=== PATIENT | female | born 1975 | race Two or more races ===

== ENCOUNTER → 2024-07-21 | Outpatient (CLI) | payer MEDICAID, SELFPAY ==
--- NOTE | 2024-07-21 09:15 | XR_ITS ---
Examination: Screening digital mammography, bilateral Computer aided detection 3-D breast Tomosynthesis, bilateral Date and time of exam: July 21, 2024 0856 hours Compared to mammograms dating to September 23, 2021 Indication: Screening Technique: Nonmagnified MLO, CC views of the breasts to been obtained, reconstructed from 3-D Tomosynthesis images. R2 computer aided detection program utilized for evaluation of suspicious masses and/or abnormal calcifications. 3-D Tomosynthesis images obtained. Findings: The breasts are heterogeneously dense, which may obscure small masses 12 mm nodule lobular margins upper outer left breast Benign calcifications Impression: BI-RADS Category 0: Incomplete: Need additional imaging evaluation 12 mm nodule lobular margins upper outer left breast, recommend follow-up spot tomographic views of this nodule as well as left breast sonography to complete the workup
== END | disposition home or self-care (01) ==
LOC: CDIM 08:40
PROVIDERS: Referring Provider Nurse Practitioner Family; Visit Provider Nurse Practitioner Family
DX: Z12.31 Encounter for screening mammogram for malignant neoplasm of breast (principal); N63.21 Unspecified lump in the left breast, upper outer quadrant
CPT/HCPCS: 77063; 77067

== ENCOUNTER → 2024-09-23 | Outpatient (CLI) | payer MEDICAID, SELFPAY ==
--- NOTE | 2024-09-23 11:00 | XR_ITS ---
Examination: Breast ultrasound, unilateral, left complete Date and time of exam: October 03, 2024 1144 hours INDICATIONS: Left breast pain beginning 5 months ago, mammogram July 21, 2024 12 mm nodule upper outer left breast Technique: Real-time dawson scale ultrasonographic imaging performed left breast including all 4 quadrants as well as nipple retroareolar and axillary region. Findings: 12:00 nodule lobular margins 3 by 4 x 4 millimeter 2:00 nodule lobular indistinct margins 4 x 7 x 5 mm 4:00 cyst 3 x 3 mm IMPRESSION: BI-RADS Category 4: Suspicious for malignancy Suspicious mass 2:00 position left breast, biopsy is needed to exclude breast carcinoma, this mass is amenable to ultrasound-guided breast biopsy for diagnosis
--- NOTE | 2024-09-23 11:30 | XR_ITS ---
Examination: Diagnostic digital mammography, unilateral, left Computer aided detection 3-D breast Tomosynthesis, unilateral Date and time of exam: October 03, 2024 1135 hours INDICATIONS: Mammogram July 21, 2024 12 mm nodule lobular margins upper outer left breast Technique: Nonmagnified MLO, CC views of the left breast have been obtained, reconstructed from 3-D Tomosynthesis images. R2 computer aided detection program utilized for evaluation of suspicious masses and/or abnormal calcifications. 3-D Tomosynthesis images obtained. Findings: The breast is heterogeneously dense, which may obscure small masses Ultrasound examination left breast today demonstrates 2:00 nodule indistinct margins 4 x 7 x 5 mm not well visualized on current mammogram Impression: BI-RADS category 4: Suspicious for malignancy Please see the left breast sonogram report today indicating BI-RADS 4 suspicious nodule 2:00 position left breast, 4 x 7 x 5 mm, indistinct margins Biopsy of this nodule is needed to exclude breast carcinoma, this nodule is amenable to ultrasound-guided breast biopsy for diagnosis
== END | disposition home or self-care (01) ==
LOC: CDIM 11:29
PROVIDERS: PCP Nurse Practitioner Family; Referring Provider Nurse Practitioner Family; Visit Provider Nurse Practitioner Family
DX: R92.342 Mammographic extreme density, left breast (principal); N63.25 Unspecified lump in the left breast, overlapping quadrants
CPT/HCPCS: 76641; 77061; 77065; G0279

== ENCOUNTER → 2024-11-16 | Outpatient (CLI) | payer MEDICAID, SELFPAY ==
--- NOTE | 2024-11-16 09:18 | XR_ITS ---
Examination: Foot bilateral, 4 views Technique: AP, lateral each foot total 4 views Date and time of exam: November 16, 2024 0921 hours INDICATIONS: Bilateral foot swelling and pain beginning 2 months ago FINDINGS: No acute fracture Moderate bilateral narrowing first metatarsophalangeal joints No dislocation No foreign body No cortical bone destruction IMPRESSION: No acute fractures Moderate bilateral narrowing first metatarsophalangeal joints
== END | disposition home or self-care (01) ==
LOC: CDIM 09:03
PROVIDERS: Referring Provider Physician Assistant; Visit Provider Physician Assistant
DX: M25.872 Other specified joint disorders, left ankle and foot (principal); M25.871 Other specified joint disorders, right ankle and foot
CPT/HCPCS: 73620

== ENCOUNTER → 2024-11-24 | Outpatient (CLI) | payer MEDICAID, SELFPAY ==
--- NOTE | 2024-11-24 07:30 | XR_ITS ---
Examination: MRI of brain without intravenous contrast. MRI brain with intravenous contrast. Date and time of exam:November 24, 2024 0750 hours INDICATIONS: Dizziness headaches beginning June 2023, elevated prolactin levels Technique: Multiple axial and sagittal images of the brain to been obtained. Siemens high-resolution 1.52 Tania short bore scanner utilized. Sagittal sections, T1 weighted images, TR 500, TE 14, are performed. Axial sections proton-density and T2-weighted images have been obtained. Inversion recovery axial images, TR 9260, TE 111, TR 2500. Diffusion weighted images, axial sections, TR 4800, TE 128, B value 1000. Axial sections, ADC map, TR 4800, TE 128. Axial and coronal images were also obtained post 13 cc gadolinium administered intravenously. Findings:: Enlargement of the sella turcica is not present. The optic chiasm and infundibular stalk are not remarkable. There is no localized enlargement of the medulla or stephen. Fourth ventricle and cerebellar tonsils appear normal in position. No subacute area of hemorrhage density is seen. Fourth ventricle is midline. Mass in the cerebellopontine angle region is not evident. 7th and 8th nerve complexes exhibit symmetry Globes are symmetrical Orbital musculature including medial lateral rectus muscles do not exhibit abnormality Increased white matter signal is seen Effacement of the cortical sulcal markings is not identified. Mass effect upon the ventricular system is not identified. Diffusion-weighted images demonstrate no focus of restricted diffusion Contrast images demonstrate 5 mm pituitary microadenoma Impression: 5 mm pituitary microadenoma
== END | disposition home or self-care (01) ==
LOC: SMRI 07:16
PROVIDERS: PCP Nurse Practitioner Family; Referring Provider Neurological Surgery; Visit Provider Neurological Surgery
DX: E23.7 Disorder of pituitary gland, unspecified (principal)
CPT/HCPCS: 70553; A9579

== ENCOUNTER 2025-01-08 05:37 | Emergency (ER) | payer MEDICAID, SELFPAY ==
[2025-01-08 05:41] VITALS: BMI 29.2
[2025-01-08 06:06] VITALS: BP 148/85; PULSE 85; RESP 16; TEMP 36.9; O2SAT 97
--- NOTE | 2025-01-08 06:19 | PD.EDRME ---
Rapid Medical Screening Exam RME Arrival date/time: 01/08/25 05:37 This is a 49 year old female with complaints of abdominal pain for 3 days. pt alsop having n/v. Pt having urinary frequency. I have greeted and performed a focused initial assessment of this patient. Initial appropriate labs ordered at this time. A comprehensive ED assessment and evaluation of the patient and analysis of all test and completion of medical decision making process will be conducted by additional ED provider. Chief Complaint: Abdominal Pain Time Seen by Provider: 01/08/25 06:14 Vital signs: Vital Signs Temperature 98.5 F 01/08/25 06:06 Pulse Rate 85 01/08/25 06:06 Respiratory Rate 16 01/08/25 06:06 Blood Pressure 148/85 H 01/08/25 06:06 Pulse Oximetry (%) 97 01/08/25 06:06 Oxygen Delivery Method Room Air 01/08/25 06:06
[2025-01-08 07:42] LABS: Collection Type, Urine Voided
[2025-01-08 07:42] LABS: Basophils % (Auto) 0 % (0-2.5); Eosinophils # (Auto) 0.1 Thou/mm3 (0.0-0.5); Eosinophils % (Auto) 1 % (0-10); Hematocrit 40.3 % (36.0-46.0); Hemoglobin 13.6 g/dL (12.0-16.0); Immature Granulocytes % (Auto) 0 % (0-0); Immature Granulocytes Auto 0.02 Thou/mm3 (0.00-0.00); Lymphocytes # (Auto) 2.1 Thou/mm3 (1.0-4.8); Lymphocytes % (Auto) 27 % (10-50); Mean Corpuscular HGB Conc 33.7 g/dl (31.0-37.0); Mean Corpuscular Hemoglobin 31.6 pg (25.0-35.0); Mean Corpuscular Volume 94 fL (80-100); Monocytes # (Auto) 0.6 Thou/mm3 (0.0-0.8); Monocytes % (Auto) 7 % (0-12); Neutrophils # (Auto) 5.2 Thou/mm3 (1.8-7.7); Neutrophils % (Auto) 65 % (37-80); Nucleated Red Blood Cell % 0 /100 WBC (0); Platelet Count 294 Thou/mm3 (140-440); RDW Standard Deviation 47.2 fL (36.4-46.3); Red Blood Count 4.31 Miln/mm3 (4.00-5.20)
[2025-01-08 08:04] LABS: Bilirubin,Urine 2+ (Negative); Blood,Urine Negative (Negative); Clarity,Urine Turbid (Clear/Hazy); Color,Urine Drk-Yellow (Lt Yel-Yel); Culture Indicated,Urine Not Indicated; Glucose, Urine Negative (Negative); Ketones,Urine Negative (Negative); Leukocyte Esterase,Urine Positive (Negative); Nitrite,Urine Negative (Negative); PH,Urine 5.5 (5.0-7.0); Protein,Urine Trace (Neg - Trace); RBC,Urine 2 /hpf (0-3); Specific Gravity,Urine 1.025 (1.001-1.035); Squamous Epithelial Cell,Urine 9 /hpf (0-5); WBC,Urine 6 /hpf (0-5)
[2025-01-08 08:19] LABS: Alanine Aminotransferase 611 U/L (10-49); Albumin, Serum 4.8 gm/dL (3.5-5.0); Albumin/Globulin Ratio 1.7 (1.2-2.2); Alkaline Phosphatase 169 U/L (46-116); Anion Gap 10 (7-16); Aspartate Amino Transferase 539 U/L (0-34); BUN/Creatinine Ratio 8 Ratio (12-20); Bilirubin,Total 2.8 mg/dL (0.3-1.2); Blood Urea Nitrogen 6 mg/dL (9-23); Calcium 9.5 mg/dL (8.3-10.6); Calcium (Corrected) 9.5 mg/dL (8.5-10.1); Carbon Dioxide 23.4 mMol/L (20.0-31.0); Chloride 105 mMol/L (98-107); Creatinine (Component) 0.8 mg/dL (0.6-1.3); Estimated Creatinine Clearance 74.8 mL/min (>60); Globulin 2.9 gm/dL (2.3-3.5); Glucose 115 mg/dL (74-106); Lipase 31 U/L (12-53); Osmolality,Calculated 274 (275-295); Potassium 4.4 mMol/L (3.4-5.1); Sodium 138 mMol/L (136-145); Total Protein 7.7 gm/dL (5.7-8.2); eGFR > 60 See Note
[2025-01-08 08:39] LABS: HCG Qualitative,Urine Negative
--- NOTE | 2025-01-08 08:42 | XR_ITS ---
Examination: Abdomen sonogram, Limited Date and time of exam: January 08, 2025, 0929 hrs. Indications: Right upper abdominal pain beginning 3 days ago Technique: Real-time dawson scale transabdominal sonographic images of the upper abdomen obtained. Findings: 28 mm gallstone Gallbladder wall 0.41 cm no edema Common bile duct 0.5 cm Pancreatic head 2.5 cm Liver 12.8 cm no focal liver lesions Normal hepatopedal portal venous flow Patent IVC Impression: Cholelithiasis Borderline thickening gallbladder wall, clinical correlation advised
[2025-01-08 10:35] VITALS: BP 146/45; PULSE 78; RESP 18; TEMP 36.7; O2SAT 100
--- NOTE | 2025-01-08 10:39 | PD.EDADULT ---
ED General RME/HPI General Chief complaint: Abdominal Pain Stated complaint: LOW BACK PAIN LLQ ABD PAIN Time Seen by Provider: 01/08/25 06:14 Arrival date/time: 01/08/25 05:37 Limitations: no limitations RME / HPI RME / HPI narrative: 01/08/25 05:37 This is a 49 year old female with complaints of abdominal pain for 3 days. pt alsop having n/v. Pt having urinary frequency. I have greeted and performed a focused initial assessment of this patient. Initial appropriate labs ordered at this time. A comprehensive ED assessment and evaluation of the patient and analysis of all test and completion of medical decision making process will be conducted by additional ED provider. DR. LANDAVERDE MAIN ED EVALUATION: 49 year old female presents to the Emergency Department with complaint of upper abdominal pain, worse on the left side compared to the right, onset 3 days. She states on Thursday, 3 days ago, her abdomen felt hard and she has associated nausea and vomiting. No vomiting today. She states she finished her menses this week, normal. PMHx: Denies any PMHx, surgeries, daily medications, or known allergies. Social Hx: No tobacco, alcohol, or substance use. Related Data Home Medications ?Medication ?Instructions ?Recorded ?Confirmed folic acid 1 mg tablet 1 mg PO QDAY 06/25/21 06/25/21 Previous Rx's ?Medication ?Instructions ?Recorded naproxen 500 mg tablet (Naprosyn) 500 mg PO BID PRN pain #60 tabs 10/28/19 diclofenac sodium 50 mg 50 mg PO TID PRN pain, moderate 06/25/21 tablet,delayed release #30 tabs methylprednisolone 4 mg tablets in 4 mg PO QDAY #21 tabs 06/25/21 a dose pack (Methylpred DP) ibuprofen 800 mg tablet (IBU) 800 mg PO Q8H #20 tabs 10/23/23 hydrocodone 5 mg-acetaminophen 325 1 tab PO TID PRN pain #14 tabs 01/08/25 mg tablet Allergies Allergy/AdvReac Type Severity Reaction Status Date / Time No Known Allergies Allergy Verified 01/08/25 05:51 Review of Systems Review of Systems Systems Reviewed: All systems reviewed, normal except as documented Past Medical History Past Medical History CARDIAC: Positive Cardiac Disorders, Hypertension and Hypotension REPRODUCTIVE: Positive Previous Pregnancies MUSCULOSKELETAL: Positive Rheumatoid Arthritis OTHER HISTORY: Positive Chicken Pox Family History FAMILY HISTORY: Positive Family Cardiac Disorders Surgical History SURGICAL: Positive Knee Sx and Tubal Ligation Social History SMOKING STATUS: Never smoker SUBSTANCE USE: does not use ALCOHOL: Never ED Exam General Limitations: Present no limitations General appearance: Present alert and in no apparent distress Head Head exam: Present atraumatic, normocephalic and normal inspection Eye Eye exam: Present normal appearance, PERRL and EOMI ENT ENT exam: Present normal exam, normal oropharynx and mucous membranes moist Neck Neck exam: Present normal inspection, full ROM and trachea midline Chest Chest inspection: Present normal inspection and symmetric chest wall rise Respiratory Respiratory exam: Present normal lung sounds bilaterally Cardiovascular Cardiovascular exam: Present regular rate, normal rhythm and normal heart sounds Abdominal Exam Abdominal exam: Present tenderness (1+ right upper quadrant tenderness, 1+ left mid abdomen tenderness) and normal bowel sounds; Absent rebound or rigidity Extremities Exam Extremities exam: Present normal inspection and full ROM Back Exam Back exam: Present normal inspection and full ROM Neurological Exam Neurological exam: Present alert, oriented X3 and CN II-XII intact Psychiatric Psychiatric exam: Present normal affect and normal mood Skin Skin exam: Present warm, dry, intact and normal color Course Quality Measures none Orders Category Date Time Status Insert IV NOW Care 01/08/25 11:24 Completed US abdomen limited Stat Exams 01/08/25 08:42 Completed CBC Stat Lab 01/08/25 07:00 Completed Comprehensive Metabolic Panel Stat Lab 01/08/25 07:00 Completed HCG Qualitative,Urine Stat Lab 01/08/25 06:24 Completed Lipase Stat Lab 01/08/25 07:00 Completed Urinalysis, C/S if Indicated Stat Lab 01/08/25 06:24 Completed Ketorolac Inj [Toradol Inj] Med 01/08/25 11:14 Discontinued 30 mg IVP X1 ONE Ondansetron Inj [Zofran Inj] Med 01/08/25 11:14 Discontinued 4 mg IVP X1 ONE Sodium Chloride 0.9% 1000 ml [Ns] 1,000 ml Med 01/08/25 11:14 Discontinued IV 999 mls/hr Vital Signs Vital signs: Vital Signs Temperature 98.5 F 01/08/25 06:06 Pulse Rate 85 01/08/25 06:06 Respiratory Rate 16 01/08/25 06:06 Blood Pressure 148/85 H 01/08/25 06:06 Pulse Oximetry (%) 97 01/08/25 06:06 Oxygen Delivery Method Room Air 01/08/25 06:06 Discharge Plan Plan Patient Disposition: HOME (Self Care) Patient condition on transfer: Stable Prescriptions/Referrals Prescriptions/Med Rec: New hydrocodone-acetaminophen 5-325 mg tablet 1 tab PO TID MDD 3 PRN (Reason: pain) Qty: 14 0RF No Action naproxen [Naprosyn] 500 mg tablet 500 mg PO BID PRN (Reason: pain) Qty: 60 0RF folic acid 1 mg tablet 1 mg PO QDAY methylprednisolone [Methylpred DP] 4 mg tablets,dose pack 4 mg PO QDAY Qty: 21 0RF diclofenac sodium 50 mg tablet,delayed release (DR/EC) 50 mg PO TID PRN (Reason: pain, moderate) Qty: 30 0RF ibuprofen [IBU] 800 mg tablet 800 mg PO Q8H Qty: 20 0RF Referrals: Orin Calderon FNP [Primary Care Provider] - In 1 week Rosendo Whitmore MD [Physician] - In 1 week Problem List Clinical Impression: Elevated liver enzymes, Abdominal pain Patient/Caregiver Discharge Instructions Education Materials: Abdominal Pain Additional Instructions: Please come back tomorrow for your MRCP, preferably after 8 AM. Return to the Emergency Department as needed. Por favor regrese ma?ector para thurston escaneo MRCP, preferiblemente despu?s de las 8 AM. Regrese al Departamento de Emergencias seg?n sea necesario. Print Language: Hebrew Stand Alone Forms: Amada Award Info., Patient Portal Info Letter MDM Narrative [facility] hospital course: I, Prerna Topete am scribing for and in the presence of Dr. Landaverde. Patient will be discharged with elevated liver enzymes and abdominal pain. He needs a MRCP but those services are not available on Sundays so he will return tomorrow. Dr. Whitmore will follow with this patient tomorrow as well. Clinical Information Provided by patient Medical Records Reviewed [facility] Meds/Rx Considered, not Ordered None Labs/Rad/Tests considered, not Ordered None Chronic Illness/Social Conditions Add or document further as needed: Denies any PMHx, surgeries, daily medications, or known allergies. EKG EKG not done Lab Interpretation Labs: see narrative above Imaging Imaging interpretation: see narrative above Radiology reports / interpretation(s): Procedure(s): US abdomen limited Accession Number(s): [id number] cc: [place] MD; Orin Calderon ACCOUNT SERVICES MANAGER; Selina Walsh ASSISTANT PROFESSOR OF ENGLISH~ Examination: Abdomen sonogram, Limited Date and time of exam: January 08, 2025, 0929 hrs. Indications: Right upper abdominal pain beginning 3 days ago Technique: Real-time dawson scale transabdominal sonographic images of the upper abdomen obtained. Findings: 28 mm gallstone Gallbladder wall 0.41 cm no edema Common bile duct 0.5 cm Pancreatic head 2.5 cm Liver 12.8 cm no focal liver lesions Normal hepatopedal portal venous flow Patent IVC Impression: Cholelithiasis Borderline thickening gallbladder wall, clinical correlation advised Dictated By: [place] MD Medication Administration(s) Medication Administration History Discontinued Medications Sodium Chloride (Ns) 1,000 mls @ 999 mls/hr IV .Q1H1M ONE Stop: 01/08/25 12:14 Last Infusion: 01/08/25 12:37 Dose: Infused Documented By: Admin: 01/08/25 11:26 Dose: 999 mls/hr Documented By: DO Ketorolac Tromethamine (Ketorolac Inj 30 Mg/Ml Vial) 30 mg IVP X1 ONE Stop: 01/08/25 11:15 Last Admin: 01/08/25 11:26 Dose: 30 mg Documented By: DO Ondansetron HCl (Ondansetron Inj 2 Mg/Ml Inj 2 Ml) 4 mg IVP X1 ONE; Protocol Stop: 01/08/25 11:15 Last Admin: 01/08/25 11:26 Dose: 4 mg Documented By: DO Diagnosis Differential diagnosis: Epigastric pain, gastritis, GERD Most likely dx, and/or detailed dx discussion: Elevated liver enzymes Abdominal pain Dispositon Disposition: Discharge Home
[2025-01-08] MEDS: SODIUM CHLORIDE 0.9% 1000 ML 1,000 ML 999 ML IV (11:26)
[2025-01-08] MEDS: ONDANSETRON INJ 2 MG/ML INJ 2 ML 4 MG IVP (11:26)
[2025-01-08] MEDS: KETOROLAC INJ 30 MG/ML VIAL IVP (11:26)
[2025-01-08 12:00] VITALS: BP 153/75; PULSE 75; RESP 16; TEMP 36.7; O2SAT 97
[2025-01-08 12:46] VITALS: BP 164/85; PULSE 81; RESP 16; TEMP 36.6; O2SAT 99
== END 2025-01-08 12:48 | disposition home or self-care (01) ==
PROVIDERS: Nurse Practitioner Family; Emergency Provider Family Medicine; PCP Nurse Practitioner Family
DX: K80.20 Calculus of gallbladder without cholecystitis without obstruction (principal)
CPT/HCPCS: 36415; 76705; 80053; 81001; 81025; 83690; 85025; 96361; 96374; 96375; 99284; J1885; J2405; J7030

== ENCOUNTER 2025-01-09 08:05 | Inpatient (IN) | payer MEDICAID, SELFPAY ==
[2025-01-09] VITALS (14 sets, daily range): BP systolic 126–160; BP diastolic 69–92; PULSE 68–104; RESP 14–19; TEMP 36.1–37.1; O2SAT 96–100; BMI 29.2; BMI 30.2
--- NOTE | 2025-01-09 | XR_ITS ---
MRI abdomen, without contrast. MRCP Date and time of exam: January 09, 2025 1032 hours INDICATIONS: Elevated liver enzymes on laboratory examination yesterday with nausea vomiting 3 days, abdomen sonogram January 08, 2025 cholelithiasis, borderline thickening gallbladder wall Technique: Multiple axial and coronal images of the abdomen have been obtained with the Siemens 1.5T MRI scanner. Images obtained included T1 weighted transverse images, T2-weighted transverse images, T2-weighted transverse images fat-suppressed, T2 weighted haste fat suppressed transverse images, T1 weighted images, in and out of phase images, T2-weighted coronal images, breath hold, T2 weighted haze coronal images as well as T2 weighted coronal thick slab images, MRCP. Findings: Hepatomegaly 17 cm Contracted gallbladder, gallstones, gallbladder wall does not appear thickened No common hepatic or common bile duct stones No pancreatic edema no dilated pancreatic duct Spleen not enlarged No hydronephrosis No ascites IMPRESSION: Cholelithiasis, negative for cholecystitis No common hepatic or common bile duct stones
--- NOTE | 2025-01-09 08:45 | EDNOTE_ITS ---
ED General RME/HPI General Chief complaint: Abdominal Pain Stated complaint: RETURNED FOR MRCP Time Seen by Provider: 01/09/25 08:08 Arrival date/time: 01/09/25 08:05 Limitations: no limitations RME / HPI RME / HPI narrative: DR. LANDAVERDE MAIN ED EVALUATION: 49 year old female presents to the Emergency Department with complaint of upper abdominal pain onset 4 days. She states on Thursday, 4 days ago, her abdomen felt hard and she has associated nausea and vomiting. No vomiting today. She states she finished her menses this week, normal. Patient was told to come in today for a MRCP. PMHx: Denies any PMHx, surgeries, daily medications, or known allergies. Social Hx: No tobacco, alcohol, or substance use. Related Data Home Medications ?Medication ?Instructions ?Recorded ?Confirmed folic acid 1 mg tablet 1 mg PO QDAY 06/25/21 Previous Rx's ?Medication ?Instructions ?Recorded naproxen 500 mg tablet (Naprosyn) 500 mg PO BID PRN pa in #60 tabs 10/28/19 diclofenac sodium 50 mg 50 mg PO TID PRN pain, moder ate 06/25/21 tablet,delayed release #30 tabs methylprednisolone 4 mg tablets in 4 mg PO QDAY #21 ta bs 06/25/21 a dose pack (Methylpred DP) ibuprofen 800 mg tablet (IBU) 800 mg PO Q8H #20 tabs 0 10/23/23 hydrocodone 5 mg-acetaminophen 325 1 tab PO TID PRN pa in #14 tabs 01/08/25 mg tablet Allergies Allergy/AdvReac Type Severity Reaction Status Date / Time No Known Allergies Allergy Verified 01/09/25 08:09 Review of Systems Review of Systems Systems Reviewed: All systems reviewed, normal except as documented Past Medical History Past Medical History CARDIAC: Positive Cardiac Disorders, Hypertension and Hypotension REPRODUCTIVE: Positive Previous Pregnancies MUSCULOSKELETAL: Positive Rheumatoid Arthritis OTHER HISTORY: Positive Chicken Pox Family History FAMILY HISTORY: Positive Family Cardiac Disorders Surgical History SURGICAL: Positive Tubal Ligation Social History SMOKING STATUS: Never smoker SUBSTANCE USE: does not use ALCOHOL: Never ED Exam General Limitations: Present no limitations General appearance: Present alert and in no apparent distress Head Head exam: Present atraumatic, normocephalic and normal inspection Eye Eye exam: Present normal appearance, PERRL and EOMI ENT ENT exam: Present normal exam, normal oropharynx and mucous membranes moist Neck Neck exam: Present normal inspection, full ROM and trachea midline Chest Chest inspection: Present normal inspection and symmetric chest wall rise Respiratory Respiratory exam: Present normal lung sounds bilaterally Cardiovascular Cardiovascular exam: Present regular rate, normal rhythm and normal heart sounds Abdominal Exam Abdominal exam: Present soft and normal bowel sounds Extremities Exam Extremities exam: Present normal inspection and full ROM Back Exam Back exam: Present normal inspection and full ROM Neurological Exam Neurological exam: Present alert, oriented X3 and CN II-XII intact Psychiatric Psychiatric exam: Present normal affect and normal mood Skin Skin exam: Present warm, dry, intact and normal color Course Quality Measures none Orders Category Date Time Status Admit to Inpatient Status Routine Admission 01/09/25 12:32 Active Patient Condition Routine Admission 01/09/25 12:32 Ordered COVID-19 Screening Questionnaire NOW Care 01/09/25 11:54 Active Digital Media Specialist STAT Care 01/09/25 11:49 Active Continuous Pulse Oximetry STAT Care 01/09/25 11:49 Active Decision to Admit X1 Care 01/09/25 11:50 Active Insert IV STAT Care 01/09/25 11:49 Active Insert [Insert IV] NOW Care 01/09/25 08:47 Active MRI Screening NOW Care 01/09/25 08:14 Active NPO NOW Care 01/09/25 12:34 Active NPO STAT Care 01/09/25 11:49 Active Notify provider NEEDED Care 01/09/25 12:32 Active Consult to Gastroenterology Stat Cons 01/09/25 11:51 Ordered Consult to General Surgery Stat Cons 01/09/25 11:51 Ordered Diet NPO (NOW) Diet 01/09/25 12:34 Active MR MRCP Stat Exams 01/09/25 Completed Blood Culture (Lab) Stat Lab 01/09/25 11:59 Ordered CBC AM DRAW Lab 01/10/25 05:00 Ordered CBC AM DRAW Lab 01/11/25 05:00 Ordered CBC AM DRAW Lab 01/12/25 05:00 Ordered CBC AM DRAW Lab 01/13/25 05:00 Ordered CBC Stat Lab 01/09/25 11:49 Ordered CMP [Comprehensive Metabolic Panel] AM DRAW Lab 01/10/25 05:00 Ordered CMP [Comprehensive Metabolic Panel] AM DRAW Lab 01/11/25 05:00 Ordered CMP [Comprehensive Metabolic Panel] AM DRAW Lab 01/12/25 05:00 Ordered CMP [Comprehensive Metabolic Panel] AM DRAW Lab 01/13/25 05:00 Ordered CMP [Comprehensive Metabolic Panel] Stat Lab 01/09/25 08:47 Completed Hepatitis Acute Panel Routine Lab 01/09/25 12:34 Ordered Hepatitis Acute Panel Stat Lab 01/09/25 12:00 Ordered Lipase Stat Lab 01/09/25 08:47 Completed Lipase Stat Lab 01/09/25 11:49 Ordered Magnesium AM DRAW Lab 01/10/25 05:00 Ordered Magnesium AM DRAW Lab 01/11/25 05:00 Ordered Magnesium AM DRAW Lab 01/12/25 05:00 Ordered Magnesium AM DRAW Lab 01/13/25 05:00 Ordered Magnesium Stat Lab 01/09/25 11:49 Ordered Phosphorous AM DRAW Lab 01/10/25 05:00 Ordered Phosphorous AM DRAW Lab 01/11/25 05:00 Ordered Phosphorous AM DRAW Lab 01/12/25 05:00 Ordered Phosphorous AM DRAW Lab 01/13/25 05:00 Ordered Prothrombin Time with INR Stat Lab 01/09/25 11:49 Ordered Urinalysis Stat Lab 01/09/25 11:49 Ordered Urinalysis, C/S if Indicated Stat Lab 01/09/25 11:49 Ordered Acetaminophen Tab [Tylenol Tab] Med 01/09/25 12:32 Ordered 650 mg PO Q6H PRN Acetaminophen Tab [Tylenol Tab] Med 01/09/25 12:32 Ordered 650 mg PO Q6H PRN HYDROcodone/APAP 10/325 [Hagerman 10/325] Med 01/09/25 12:32 Ordered 1 tab PO Q4HR PRN Heparin Inj Med 01/09/25 21:00 Ordered 5,000 unit SC BID Ketorolac Inj [Toradol Inj] Med 01/09/25 11:36 Discontinued 30 mg IVP X1 ONE Morphine Inj Med 01/09/25 11:48 Once 4 mg IVP X1 ONE Ondansetron Inj [Zofran Inj] Med 01/09/25 11:48 Active 4 mg IVP Q1H PRN Ondansetron Inj [Zofran Inj] Med 01/09/25 12:32 Ordered 4 mg IVP Q6H PRN Pantoprazole Inj [Protonix Inj] Med 01/10/25 09:00 Ordered 40 mg IVP QDAY Piper/Tazo 3.375 gm Premix [Zosyn] 50 ml Med 01/09/25 12:33 Ordered IV Q8HR Sodium Chloride 0.9% 1000 ml [Ns] 1,000 ml Med 01/09/25 11:48 Active IV 999 mls/hr cefTRIAXone/D5w 1gm IV premix [Rocephin/D5w 1gm IV Med 01/09/25 11:49 Discontinued premix] 1 gm in 50 ml IV X1 oxyCODONE/APAP 5/325 [Percocet 5/325] Med 01/09/25 12:32 Ordered 1 tab PO Q6H PRN Code Status Routine Oth 01/09/25 12:32 Ordered Vital Signs Vital signs: Vital Signs Temperature 98.8 F 01/09/25 08:28 Pulse Rate 82 01/09/25 08:28 Respiratory Rate 16 01/09/25 08:28 Blood Pressure 140/78 H 01/09/25 08:28 Pulse Oximetry (%) 98 01/09/25 08:28 Discharge Plan Plan Patient Disposition: Admit Acute Care w/in Hospital Prescriptions/Referrals Prescriptions/Med Rec: No Action naproxen [Naprosyn] 500 mg tablet 500 mg PO BID PRN (Reason: pain) Qty: 60 0RF folic acid 1 mg tablet 1 mg PO QDAY methylprednisolone [Methylpred DP] 4 mg tablets,dose pack 4 mg PO QDAY Qty: 21 0RF diclofenac sodium 50 mg tablet,delayed release (DR/EC) 50 mg PO TID PRN (Reason: pain, moderate) Qty: 30 0RF ibuprofen [IBU] 800 mg tablet 800 mg PO Q8H Qty: 20 0RF hydrocodone-acetaminophen 5-325 mg tablet 1 tab PO TID MDD 3 PRN (Reason: pain) Qty: 14 0RF Problem List Clinical Impression: Elevated liver enzymes, Abdominal pain Patient/Caregiver Discharge Instructions Print Language: Belarusian Stand Alone Forms: Amada Award Info., Patient Portal Info Letter MDM Narrative [facility] hospital course: I, Prerna Topete am scribing for and in the presence of Dr. Landaverde. Clinical Information Provided by patient Medical Records Reviewed [facility] Meds/Rx Considered, not Ordered None Labs/Rad/Tests considered, not Ordered None Chronic Illness/Social Conditions Add or document further as needed: Denies any PMHx, surgeries, daily medications, or known allergies. EKG EKG not done Imaging Radiology reports / interpretation(s): Procedure(s): MR MRCP Accession Number(s): [id number] cc: Zee (ART),Anthony CORDOVA; [place] Bl[place] MD~ MRI abdomen, without contrast. MRCP Date and time of exam: January 09, 2025 1032 hours INDICATIONS: Elevated liver enzymes on laboratory examination yesterday with nausea vomiting 3 days, abdomen sonogram January 08, 2025 cholelithiasis, borderline thickening gallbladder wall Technique: Multiple axial and coronal images of the abdomen have been obtained with the Siemens 1.5T MRI scanner. Images obtained included T1 weighted transverse images, T2-weighted transverse images, T2-weighted transverse images fat-suppressed, T2 weighted haste fat suppressed transverse images, T1 weighted images, in and out of phase images, T2-weighted coronal images, breath hold, T2 weighted haze coronal images as well as T2 weighted coronal thick slab images, MRCP. Findings: Hepatomegaly 17 cm Contracted gallbladder, gallstones, gallbladder wall does not appear thickened No common hepatic or common bile duct stones No pancreatic edema no dilated pancreatic duct Spleen not enlarged No hydronephrosis No ascites IMPRESSION: Cholelithiasis, negative for cholecystitis No common hepatic or common bile duct stones Dictated By: [place] MD Medication Administration(s) Medication Administration History Acetaminophen (Acetaminophen 325 Mg Tablet) 650 mg PO Q6H PRN PRN Reason: PAIN SCALE 1-3 (mild Stop: 02/08/25 12:31 Acetaminophen (Acetaminophen 325 Mg Tablet) 650 mg PO Q6H PRN PRN Reason: Fever >100.4 Stop: 02/08/25 12:31 Hydrocodone Bitart/Acetaminophen (Hydrocodone/Apap 10/325 Tab) 1 tab PO Q4HR PRN PRN Reason: PAIN SCALE 7-10 (Severe Stop: 01/14/25 12:31 Heparin Sodium (Porcine) (Heparin Sod Inj 5000 Unit/Ml Vial) 5,000 unit SC BID KEY Stop: 01/23/25 20:59 Sodium Chloride (Ns) 1,000 mls @ 999 mls/hr IV .Q1H1M ONE Stop: 01/09/25 12:48 Last Admin: 01/09/25 11:55 Dose: 999 mls/hr Documented By: DO Piperacillin/Tazobactam/Dextrose (Zosyn) 50 mls @ 100 mls/hr IV Q8HR KEY Stop: 01/16/25 12:32 Morphine Sulfate (Morphine Sulf Inj 10 Mg/Ml Vial) 4 mg IVP X1 ONE Stop: 01/09/25 13:49 Last Admin: 01/09/25 11:55 Dose: Not Given Documented By: DO Non-Admin Reason: Patient Refused Ondansetron HCl (Ondansetron Inj 2 Mg/Ml Inj 2 Ml) 4 mg IVP Q1H PRN PRN Reason: PERSISTENT NAUSEA OR VOMITING Last Admin: 01/09/25 12:00 Dose: 4 mg Documented By: DO Ondansetron HCl (Ondansetron Inj 2 Mg/Ml Inj 2 Ml) 4 mg IVP Q6H PRN; Protocol PRN Reason: NAUSEA OR VOMITING Stop: 02/08/25 12:31 Oxycodone/Acetaminophen (Oxycodone/Apap 5/325 Tablet) 1 tab PO Q6H PRN PRN Reason: PAIN SCALE 4-6 (Moderate Stop: 01/14/25 12:31 Pantoprazole Sodium (Pantoprazole Inj 40 Mg Vial) 40 mg IVP QDAY [facility] Stop: 02/09/25 08:59 Discontinued Medications Ceftriaxone Sodium/Dextrose (Rocephin/D5w 1gm Iv Premix) 1 gm in 50 mls @ 100 mls/hr IV X1 ONE Stop: 01/09/25 12:18 Last Admin: 01/09/25 12:00 Dose: 100 mls/hr Documented By: DO Ketorolac Tromethamine (Ketorolac Inj 30 Mg/Ml Vial) 30 mg IVP X1 ONE Stop: 01/09/25 11:37 Last Admin: 01/09/25 11:55 Dose: 30 mg Documented By: Consultations/Discussions re: Management Consult #1: Date/time: 01/09/25 12:30 pm Physician, specialty, service, details: Discussed test HPI, PMHx, lab, radiology results and/or management with resident working with the hospitalist. Will admit for further evaluation and management. Accepts patient for admission. Diagnosis Differential diagnosis: Epigastric pain, gastritis, GERD Most likely dx, and/or detailed dx discussion: Elevated liver enzymes Abdominal pain Dispositon Disposition: Admit
[2025-01-09 09:18] LABS: Alanine Aminotransferase 590 U/L (10-49); Albumin, Serum 4.5 gm/dL (3.5-5.0); Albumin/Globulin Ratio 1.6 (1.2-2.2); Alkaline Phosphatase 164 U/L (46-116); Anion Gap 9 (7-16); Aspartate Amino Transferase 390 U/L (0-34); BUN/Creatinine Ratio 6 Ratio (12-20); Bilirubin,Total 3.4 mg/dL (0.3-1.2); Blood Urea Nitrogen 5 mg/dL (9-23); Calcium 9.2 mg/dL (8.3-10.6); Calcium (Corrected) 9.2 mg/dL (8.5-10.1); Carbon Dioxide 22.6 mMol/L (20.0-31.0); Chloride 106 mMol/L (98-107); Creatinine (Component) 0.8 mg/dL (0.6-1.3); Estimated Creatinine Clearance 74.8 mL/min (>60); Globulin 2.9 gm/dL (2.3-3.5); Glucose 107 mg/dL (74-106); Lipase 26 U/L (12-53); Osmolality,Calculated 272 (275-295); Potassium 3.7 mMol/L (3.4-5.1); Sodium 138 mMol/L (136-145); Total Protein 7.4 gm/dL (5.7-8.2); eGFR > 60 See Note
[2025-01-09] MEDS: SODIUM CHLORIDE 0.9% 1000 ML 1,000 ML 999 ML IV (11:55)
[2025-01-09] MEDS: KETOROLAC INJ 30 MG/ML VIAL IVP (11:55)
[2025-01-09] MEDS: ONDANSETRON INJ 2 MG/ML INJ 2 ML 4 MG IVP (12:00)
[2025-01-09] MEDS: cefTRIAXone/D5w 1gm IV premix 1 GM/50 ML BAG IV (12:00)
[2025-01-09 12:44] LABS: Basophils % (Auto) 0 % (0-2.5); Eosinophils # (Auto) 0.1 Thou/mm3 (0.0-0.5); Eosinophils % (Auto) 1 % (0-10); Hematocrit 36.6 % (36.0-46.0); Hemoglobin 12.7 g/dL (12.0-16.0); Immature Granulocytes % (Auto) 0 % (0-0); Immature Granulocytes Auto 0.02 Thou/mm3 (0.00-0.00); Lymphocytes # (Auto) 2.6 Thou/mm3 (1.0-4.8); Lymphocytes % (Auto) 34 % (10-50); Mean Corpuscular HGB Conc 34.7 g/dl (31.0-37.0); Mean Corpuscular Hemoglobin 31.6 pg (25.0-35.0); Mean Corpuscular Volume 91 fL (80-100); Monocytes # (Auto) 0.5 Thou/mm3 (0.0-0.8); Monocytes % (Auto) 6 % (0-12); Neutrophils # (Auto) 4.6 Thou/mm3 (1.8-7.7); Neutrophils % (Auto) 59 % (37-80); Nucleated Red Blood Cell % 0 /100 WBC (0); Platelet Count 283 Thou/mm3 (140-440); RDW Standard Deviation 46.9 fL (36.4-46.3); Red Blood Count 4.02 Miln/mm3 (4.00-5.20); White Blood Count 7.8 Thou/mm3 (3.6-11.0)
[2025-01-09 12:58] LABS: Prothrombin Time 11.3 Seconds (9.0-12.2)
[2025-01-09 13:03] LABS: Lipase 26 U/L (12-53)
[2025-01-09] MEDS: PIPER/TAZO 3.375 GM PREMIX 3.375 GM/50 ML BAG IV (13:06)
[2025-01-09 13:47] LABS: Hepatitis A Antibody IgM Non Reactive (Non React); Hepatitis B Core Antibody IgM Non Reactive (Non React); Hepatitis B Surface Antigen Non Reactive (Non React); Hepatitis C Antibody Non Reactive (Non React)
[2025-01-09 14:17] LABS: Collection Type, Urine Clean Catch
--- NOTE | 2025-01-09 14:41 | PC.NURSE ---
SPOKE WITH SURGERY AND GAVE REPORT. PT WILL BE PICKED UP FOR SURGERY SHORTLY. CALLED FLOOR NURSE FIDEL TO UPDATE ON PT'S PLAN OF CARE.
[2025-01-09 14:42] LABS: Bacteria,Urine Rare; Bilirubin,Urine 1+ (Negative); Blood,Urine Negative (Negative); Clarity,Urine Turbid (Clear/Hazy); Color,Urine Yellow (Lt Yel-Yel); Culture Indicated,Urine Not Indicated; Glucose, Urine Negative (Negative); Ketones,Urine 2+ (Negative); Leukocyte Esterase,Urine Negative (Negative); Nitrite,Urine Negative (Negative); Protein,Urine Negative (Neg - Trace); RBC,Urine 2 /hpf (0-3); Specific Gravity,Urine 1.012 (1.001-1.035); Squamous Epithelial Cell,Urine 20 /hpf (0-5); Urobilinogen,Urine Negative mg/dL (0.0-1.0); WBC,Urine 3 /hpf (0-5)
--- NOTE | 2025-01-09 15:04 | PD.SURCONS ---
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 Patient reports she has been having epigastric pain for the past few weeks but it has been worse in the past few days, and worse with eating. She came to the ER yesterday and was advised to return for MRCP due to elevated liver enzymes. MRCP was negative for choledocholithiasis and it did not note any gallbladder wall thickening, however patient continues to have pain and is being admitted per GI recommendation. Ultrasound done yesterday showed a gallstone of approximately 2.8 cm and patient states she has had similar pain in the past it just was not as severe PMH: Arthritis PSHx: Knee surgery Meds: No antiplt or anticoagulaton Allergies: NKDA Social hx: Nonsmoker Family hx: No known malignancies Review of Systems Review of Systems ROS Unobtainable: All systems reviewed & no additional complaints except as documented Meds Home Medications and Allergies Home Medications ?Medication ?Instructions ?Recorded ?Confirmed ?Type folic acid 1 mg tablet 1 mg PO QDAY 06/25/21 06/25/21 History Allergies Allergy/AdvReac Type Severity Reaction Status Date / Time No Known Allergies Allergy Verified 01/09/25 08:09 Exam Vital Signs Temp Pulse Resp BP Pulse Ox O2 Del Method 98.1 F 77 18 151/76 H 100 Room Air 01/09/25 12:58 01/09/25 12:58 01/09/25 12:58 01/09/25 12:58 01/09/25 12:58 01/09/25 12:58 Constitutional Constitutional: no acute distress Routine Respiratory Exam Respiratory: Present no resp distress Routine Abdominal Exam Abdominal: Present soft and tenderness (moderate tenderness RUQ); Absent distended, rebound or guarding Results Results: Laboratory Laboratory results: results reviewed Results: Imaging Imaging narrative: MRCP reviewed US - abdomen: report reviewed Assessment & Plan Plan 49F presenting with signs and symptoms of acute cholecystitis, with elevated liver enzymes but negative MRCP. I explained benefits/risks of cholecystectomy including need for conversion to open, bleeding, infection, injury to nearby structures requiring further procedures including biliary reconstruction which would require transfer to another hospital, as well as postoperative hernia and diarrhea. All questions were answered and pt is agreeable to proceeding
--- NOTE | 2025-01-09 15:14 | PD.RESHP ---
Documentation for date of: 01/09/25 [facility] History of Present Illness History of present illness: History of Present Illness: Otherwise healthy 49-year-old female with significant PMH, presenting with abdominal pain. She reports chronic and recurrent episode of postprandial abdominal pain that appeared to be gradually worsening in intensity and frequency over the last 3 days. Rates the pain 7-8 out of 10 in intensity, nonradiating, located in the right upper quadrant, not relieved by OTC ANALGESICS, associated with nausea and vomiting. Denies headaches, fall or trauma, chest pain, fever, chills, chest pain, shortness of breath, constipation or diarrhea, urinary discomfort, urinary urgency or frequency, recent travel or sick exposure. She presented to ED on 01/08 with similar symptoms. Ultrasound then showed cholelithiasis and borderline gallbladder wall thickening, but appears she was discharged home. She underwent MRCP today showing cholelithiasis, negative for cholecystitis, normal hepatic duct and common bile pathology without stones. Patient was told to come into the ED for possible intervention given sustained moderate abdominal pain. Past Medical History: None Past Surgical History: Arthroscopic lavage of left knee joint for septic arthritis. Medications: HUMIRA biweekly injections for rheumatoid arthritis. Allergies: NKA Family History: None relevant Social History: Had 2 natural , full-term, no complications. Denies alcohol, drug or tobacco use. Currently takes care of of children at home. ED Course: Afebrile, BP 140/78, HR 82, RR 16, on room air satting well. CBC unremarkable. Normal coag studies. CHEM panel significant for T. bili 3.4, AST 390, ALT 590, ALP 64. Of note, LFTs, generally downtrending from the day prior. Reason for admission: Admitted for [facility] for acute calculus cholecystitis, and acute transaminitis. Review of Systems Review of Systems Systems Reviewed: All systems reviewed, normal except as documented Exam Vital Signs Temp Pulse Resp BP Pulse Ox O2 Del Method 98.1 F 77 18 151/76 H 100 Room Air 01/09/25 12:58 01/09/25 12:58 01/09/25 12:58 01/09/25 12:58 01/09/25 12:58 01/09/25 12:58 Narrative Exam GENERAL Normal appearing adult female, NAD, pain appears controlled. HEENT NCAT.?CINDY. Oral mucosa is moist. Patent Nares NECK Supple, nontender, no thyromegaly, no meningismus, no JVD, no step offs CHEST RRR, no m/g/r CTAB, no w/r/r. Symmetrical chest rise. No intercostal subcostal retraction Atraumatic, nontender, no crepitus, symmetrical expansion. ABDOMEN Soft, flat. Right upper quadrant tenderness to palpation with mild guarding, no mass noted. Bowel sounds presents EXTREMITIES No edema/cyanosis.? SKIN Warm and dry, no jaundice/rashes. NEUROMUSCULAR No lumbar or midline, no CVA, no paraspinal muscle spasm or tenderness. Moves all 4 extremities well, with full ROM and good CSM. AVELAR x4, CN II-XII grossly intact. No focal neurologic deficits. PSYCHIATRY Normal mood and affect, cooperative, no SI or HI or hallucinations. Results: Labs 01/10/25 04:45 01/10/25 04:45 Labs: Short CBC 01/09/25 Range/Units 12:00 WBC 7.8 (3.6-11.0) Thou/mm3 Hgb 12.7 (12.0-16.0) g/dL Hct 36.6 (36.0-46.0) % Plt Count 283 (140-440) Thou/mm3 BMP 01/09/25 08:47 Sodium 138 Potassium 3.7 D Chloride 106 Carbon Dioxide 22.6 BUN 5 L Creatinine 0.8 Glucose 107 H Calcium 9.2 Liver Function 01/09/25 Range/Units 08:47 Total Bilirubin 3.4 H D (0.3-1.2) mg/dL AST 390 H (0-34) U/L ALT 590 H* (10-49) U/L Alkaline Phosphatase 164 H (46-116) U/L Albumin 4.5 (3.5-5.0) gm/dL Urine 01/09/25 Range/Units 14:10 Urine Color Yellow (Lt Yel-Yel) Urine Clarity Turbid A (Clear/Hazy) Urine pH 6.0 (5.0-7.0) Ur Specific [place] 1.012 (1.001-1.035) Urine Protein Negative (Neg - Trace) Urine Glucose (UA) Negative (Negative) Quality Measures Quality Measures none Medications Home Medications and Allergies Home Medications ?Medication ?Instructions ?Recorded ?Confirmed ?Type adalimumab 40 mg/0.4 mL 40 mg subcut Q14D 01/09/25 01/09/25 History subcutaneous pen kit (Humira(CF) Pen) Allergies Allergy/AdvReac Type Severity Reaction Status Date / Time No Known Allergies Allergy Verified 01/09/25 08:09 Visit Medications Heparin Sodium (Porcine) (Heparin Sod Inj 5000 Unit/Ml Vial) 5,000 unit SC BID [facility] Stop: 01/23/25 20:59 Piperacillin/Tazobactam/Dextrose (Zosyn) 3.375 gm in 50 mls @ 12.5 mls/hr IV Q8HR [facility] Stop: 01/16/25 21:59 Ibuprofen (Ibuprofen Tab 400 Mg Tablet) 400 mg PO Q6HR PRN PRN Reason: PAIN SCALE 1-3 (mild Stop: 02/08/25 12:45 Morphine Sulfate (Morphine Sulf Inj 10 Mg/Ml Vial) 2 mg IV Q6HR PRN PRN Reason: PAIN SCALE 4-10(Mod-Sev Stop: 01/14/25 12:46 Ondansetron HCl (Ondansetron Inj 2 Mg/Ml Inj 2 Ml) 4 mg IVP Q6H PRN; Protocol PRN Reason: NAUSEA OR VOMITING Stop: 02/08/25 12:31 Pantoprazole Sodium (Pantoprazole Inj 40 Mg Vial) 40 mg IVP QDAY [facility] Stop: 02/09/25 08:59 Discontinued Medications Acetaminophen (Acetaminophen 325 Mg Tablet) 650 mg PO Q6H PRN PRN Reason: PAIN SCALE 1-3 (mild Stop: 02/08/25 12:31 Acetaminophen (Acetaminophen 325 Mg Tablet) 650 mg PO Q6H PRN PRN Reason: Fever >100.4 Stop: 02/08/25 12:31 Hydrocodone Bitart/Acetaminophen (Hydrocodone/Apap 10/325 Tab) 1 tab PO Q4HR PRN PRN Reason: PAIN SCALE 7-10 (Severe Stop: 01/14/25 12:31 Sodium Chloride (Ns) 1,000 mls @ 999 mls/hr IV .Q1H1M ONE Stop: 01/09/25 12:48 Last Infusion: 01/09/25 14:01 Dose: Infused Ceftriaxone Sodium/Dextrose (Rocephin/D5w 1gm Iv Premix) 1 gm in 50 mls @ 100 mls/hr IV X1 ONE Stop: 01/09/25 12:18 Last Infusion: 01/09/25 12:49 Dose: Infused Piperacillin/Tazobactam/Dextrose (Zosyn) 3.375 gm in 50 mls @ 100 mls/hr IV X1 ONE Stop: 01/09/25 13:14 Last Infusion: 01/09/25 14:01 Dose: Infused Ketorolac Tromethamine (Ketorolac Inj 30 Mg/Ml Vial) 30 mg IVP X1 ONE Stop: 01/09/25 11:37 Last Admin: 01/09/25 11:55 Dose: 30 mg Morphine Sulfate (Morphine Sulf Inj 10 Mg/Ml Vial) 4 mg IVP X1 ONE Stop: 01/09/25 13:49 Last Admin: 01/09/25 11:55 Dose: Not Given Ondansetron HCl (Ondansetron Inj 2 Mg/Ml Inj 2 Ml) 4 mg IVP Q1H PRN PRN Reason: PERSISTENT NAUSEA OR VOMITING Last Admin: 01/09/25 12:00 Dose: 4 mg Oxycodone/Acetaminophen (Oxycodone/Apap 5/325 Tablet) 1 tab PO Q6H PRN PRN Reason: PAIN SCALE 4-6 (Moderate Stop: 01/14/25 12:31 Assessment & Plan Plan 49-year-old female with no significant past medical history admitted for acute calculus cholecystitis, will undergo lap daron with general surgery tomorrow. Appreciate recommendations from general surgery team. Acute calculus cholecystitis Presenting with recurrent episodes of postprandial RUQ abdominal pain, nausea and vomiting, that are increasing in frequency and intensity. Ultrasound and MRCP showed cholelithiasis, no common bile duct pathology or stones. Labs are generally stable. ? Pain control ? ANTIEMETICS ? Continue ZOSYN (01/09 to present) ? Pending lap daron Acute transaminitis On presentation yesterday, AST 539, ALT 611, ALP 169, TB 2.8. On presentation today, AST 390, ALT 590, ALP 164, TB 3.4. She had mildly elevated transaminitis from 2020 with AST 55, ALT 89, ALP 126. Denies alcohol use, no previous history of hepatitis, denies excessive TYLENOL use. May be related to acute cholecystitis versus dehydration, however will follow-up with hepatitis panel. ? Pending hep panel ? IVF's as above ? Daily labs Health maintenance Diet: Low-fat diet, n.p.o. at midnight 01/10 GI prophylaxis: PROTONIX DVT prophylaxis: HEPARIN subcu hold at midnight 24 Antibiotics: ZOSYN CODE STATUS: Full code Disposition: Admitted for lap daron. Case was discussed with attending physician and senior resident. Ad Phoenix DO PGYI This document was transcribed using voice recognition technology. Minor inaccuracies may be present. Attending Provider Attestation/Addendum Elizabeth Maurice DO, attest that I was physically present for the clark portions of the service and evaluated the patient with the resident and I reviewed and discussed the case with the resident and agree with the resident's findings and plans of care as documented above Patient is a 49-year-old female with no significant past medical history admitted to the ED with worsening abdominal pain for the past 3 days. Patient complains of postprandial pain that has been progressively worsening. Patient was seen in the ED yesterday and noted to have elevated LFTs, but no MRI was available. Patient was subsequently sent home. However, patient returned due to worsening pain. Patient underwent MRCP today showing evidence of cholelithiasis, but no evidence of choledocholithiasis. LFTs remain elevated with a bilirubin 3.4, AST 390, ALT at 590 and alk phos of 164. GI consulted from ED and was recommended surgical eval. Patient [place] be [place] [facility] [place] medical management of acute calculus cholecystitis. Will start patient on IV Zosyn and scheduled for laparoscopic cholecystectomy this afternoon. Will remain n.p.o. and continue with pain control as needed.
--- NOTE | 2025-01-09 16:02 | ESOP_ITS ---
Date of Procedure 01/09/25 Pre Op Diagnosis Acute cholecystitis with cholelithiasis Post Op Diagnosis Same Procedure Laparoscopic cholecystectomy Findings Gallbladder with large stone Procedure Description After discussion of risks and benefits, patient was brought to the operating room, SCDs were placed and general anesthesia was induced. She had already received preoperative antibiotics and was prepped and draped in the usual sterile fashion. After timeout a supraumbilical incision was made with a 15 blade and the skin was elevated with towel clamps. A Veress needle was placed through the incision and proper positioning was confirmed with a drop test. The abdomen was insufflated to 15 mmHg at which point the Veress needle was exchanged for a 5 mm camera using a Visiport technique. There were no signs of injury from the point of entry. 3 additional ports were placed under direct vision, one 12 mm at the epigastrium, one 5 mm right subcostal and one 5 mm right anterior axillary line. Patient was placed in reverse Trendelenburg with left side down. The fundus of the gallbladder was grasped and retracted cephalad and the infundibulum was grasped and retracted laterally. Using blunt dissection, the critical view of safety was achieved and the cystic duct and cystic artery were clipped and transected in the usual fashion. The gallbladder was removed from the gallbladder bed using electrocautery. Hemostasis of the gallbladder bed was achieved using electrocautery. The specimen was removed in an Endo Catch bag via the epigastric port and the epigastric fascia was closed with a 0 Vicryl suture using a Lei-Yoselin. Again the gallbladder bed was examined and there were no signs of bleeding. Pneumoperitoneum was released and ports were removed under direct vision. Incisions were irrigated and infiltrated with half percent Marcaine for a total of 30 cc. Incisions were closed with 4 Monocryl and reinforced with Dermabond. Patient was extubated and brought to PACU in stable condition Pathology / specimen Other (Gallbladder) Estimated Blood Loss 20 Surgeon Anaid Avery MD Surgical Staff Operation Date: 01/09/25 15:00 Case Staff Anesthesiologist: Migue Madrigal RNinsurance sales assistant: Sushila Barraza
--- NOTE | 2025-01-09 16:14 | SUR.PHASEI ---
pt received from OR in recovery bay 1. pt asleep but responds to voice, breathing unlabored on room air. v/s stable. pt dressing to abd x4 cdi. report received from Dr. Madrigal and Virgen GARLAND.
[2025-01-09] MEDS: METOCLOPRAMIDE INJ 5 MG/ML VIAL 2 ML 10 MG IVP (16:39)
--- NOTE | 2025-01-09 17:00 | SUR.PHASEI ---
pt asleep but responds to voice, breathing unlabored on room air. v/s stable. pt dressing to abd x4 cdi. report called to Anton Trevizo. pt will be transferred to room at this time.
--- NOTE | 2025-01-09 17:10 | PC.NURSE ---
Patient to room via bed from PACU in stable condition.
--- NOTE | 2025-01-09 22:05 | ESCONSULT_ITS ---
HPI Data of Consult Requesting Physician: Elizabeth Perales DO Primary Care Provider: KIRTI Macario Consult Narrative Reason for consult: Pain abdomen cholelithiasis abnormal LFTs History of present illness: 49 years old female evaluated the request of the ER physician for abnormal LFTs and pain abdomen This is her second visit to the emergency room Abdominal ultrasound done day before showed cholelithiasis thickening of the gallbladder wall Patient had abnormal LFTs with a total bilirubin 2.8 AST ALT 539 at 611 and alk phos of 169 And repeat LFTs shows a total bilirubin 3.4 AST ALT 390 and 590 and alk phos of 164 MRCP done at my request shows no choledocholithiasis cc:: cc: Elizabeth Perales DO Review of Systems Review of Systems Systems Reviewed: All systems reviewed, normal except as documented Meds Home Medications and Allergies Home Medications ?Medication ?Instructions ?Recorded ?Confirmed ?Type adalimumab 40 mg/0.4 mL 40 mg subcut Q14D 01/09/25 0 01/09/25 History subcutaneous pen kit (Humira(CF) Pen) Allergies Allergy/AdvReac Type Severity Reaction Status Date / Time No Known Allergies Allergy Verified 01/09/25 08:09 Exam Vital Signs Temp Pulse Resp BP Pulse Ox O2 Del Method 97.2 F 89 18 148/85 H 96 Room Air 01/09/25 20:00 01/09/25 20:00 01/09/25 20:00 01/09/25 20:00 01/09/25 20:00 01/09/25 20:00 Constitutional Comments: In pain Routine Respiratory Exam Comments: Normal to auscultation Routine Abdominal Exam Comments: Soft midepigastric tenderness Results Labs 01/09/25 12:00 01/09/25 08:47 Labs: Short CBC 01/09/25 Range/Units 12:00 WBC 7.8 (3.6-11.0) Thou/mm3 Hgb 12.7 (12.0-16.0) g/dL Hct 36.6 (36.0-46.0) % Plt Count 283 (140-440) Thou/mm3 BMP 01/09/25 08:47 Sodium 138 Potassium 3.7 D Chloride 106 Carbon Dioxide 22.6 BUN 5 L Creatinine 0.8 Glucose 107 H Calcium 9.2 Liver Function 01/09/25 Range/Units 08:47 Total Bilirubin 3.4 H D (0.3-1.2) mg/dL AST 390 H (0-34) U/L ALT 590 H* (10-49) U/L Alkaline Phosphatase 164 H (46-116) U/L Albumin 4.5 (3.5-5.0) gm/dL Urine 01/09/25 Range/Units 14:10 Urine Color Yellow (Lt Yel-Yel) Urine Clarity Turbid A (Clear/Hazy) Urine pH 6.0 (5.0-7.0) Ur Specific [place] 1.012 (1.001-1.035) Urine Protein Negative (Neg - Trace) Urine Glucose (UA) Negative (Negative) Assessment and Plan Additional Assessment & Plan Additional Plan: Symptomatic cholelithiasis Cholestasis Lente secondary to cholelithiasis and cholecystitis I do not think patient has underlying chronic active hepatitis or acute viral hepatitis Recommendation Ceftriaxone 1 g IV piggyback after panculture Recommend surgical consultation for laparoscopic versus open cholecystectomy Complete workup ordered for the abnormal liver function to just in case patient has underlying chronic active hepatitis Thank you very much for the opportunity to participate in the care of this patient
[2025-01-09 22:28] LABS: Iron 98 mcg/dL (50-170); Percent Iron Saturation 33 % (20-55); Total Iron Binding Capacity 295 mcg/dL (250-425); Unsaturated Iron Binding 197 (225-295)
[2025-01-10] VITALS: BP 122/68; PULSE 86; RESP 16; TEMP 36.1; O2SAT 95
[2025-01-10 04:00] VITALS: BP 138/80; PULSE 78; RESP 16; TEMP 36.1; O2SAT 98
[2025-01-10 05:18] LABS: Basophils % (Auto) 0 % (0-2.5); Eosinophils % (Auto) 0 % (0-10); Hematocrit 40.1 % (36.0-46.0); Hemoglobin 13.4 g/dL (12.0-16.0); Immature Granulocytes % (Auto) 0 % (0-0); Immature Granulocytes Auto 0.04 Thou/mm3 (0.00-0.00); Lymphocytes # (Auto) 1.4 Thou/mm3 (1.0-4.8); Lymphocytes % (Auto) 12 % (10-50); Mean Corpuscular HGB Conc 33.4 g/dl (31.0-37.0); Mean Corpuscular Hemoglobin 31.2 pg (25.0-35.0); Mean Corpuscular Volume 93 fL (80-100); Monocytes # (Auto) 0.3 Thou/mm3 (0.0-0.8); Monocytes % (Auto) 3 % (0-12); Neutrophils # (Auto) 10.2 Thou/mm3 (1.8-7.7); Neutrophils % (Auto) 85 % (37-80); Nucleated Red Blood Cell % 0 /100 WBC (0); Platelet Count 289 Thou/mm3 (140-440)
[2025-01-10 05:37] LABS: Alanine Aminotransferase 618 U/L (10-49); Albumin, Serum 4.5 gm/dL (3.5-5.0); Albumin/Globulin Ratio 1.5 (1.2-2.2); Alkaline Phosphatase 167 U/L (46-116); Anion Gap 9 (7-16); Aspartate Amino Transferase 352 U/L (0-34); BUN/Creatinine Ratio 8 Ratio (12-20); Bilirubin,Total 1.9 mg/dL (0.3-1.2); Blood Urea Nitrogen < 5 mg/dL (9-23); Calcium 9.4 mg/dL (8.3-10.6); Calcium (Corrected) 9.4 mg/dL (8.5-10.1); Carbon Dioxide 21.8 mMol/L (20.0-31.0); Chloride 106 mMol/L (98-107); Creatinine (Component) 0.6 mg/dL (0.6-1.3); Estimated Creatinine Clearance 101.4 mL/min (>60); Glucose 118 mg/dL (74-106); Osmolality,Calculated 272 (275-295); Phosphorous 2.5 mg/dL (2.4-5.1); Potassium 4.3 mMol/L (3.4-5.1); Sodium 137 mMol/L (136-145); Total Protein 7.5 gm/dL (5.7-8.2); eGFR > 60 See Note
--- NOTE | 2025-01-10 05:58 | PC.NURSE ---
Dr. Mejia made aware of critical ALT of 618.
[2025-01-10 07:08] VITALS: PULSE 88; RESP 18; RESP 98
[2025-01-10 08:00] VITALS: BP 158/94; PULSE 83; RESP 16; TEMP 36.2; O2SAT 97
[2025-01-10] MEDS: PANTOPRAZOLE INJ 40 MG VIAL IVP (08:30)
--- NOTE | 2025-01-10 09:14 | ESPR_ITS ---
Documentation for date of: 01/10/25 Subjective Subjective Brief History: Spoke to patient with phone direct support professional ID#[id number] 49F presenting to ER with abdominal pain, nausea and vomiting. Patient reports she has been having epigastric pain for the past few weeks but it has been worse in the past few days, and worse with eating. She came to the ER yesterday and was advised to return for MRCP due to elevated liver enzymes. MRCP was negative for choledocholithiasis and it did not note any gallbladder wall thickening, however patient continues to have pain and is being admitted per GI recommendation. Ultrasound done yesterday showed a gallstone of approximately 2.8 cm and patient states she has had similar pain in the past it just was not as severe PMH: Arthritis PSHx: Knee surgery Meds: No antiplt or anticoagulaton Allergies: NKDA Social hx: Nonsmoker Family hx: No known malignancies Narrative: Pain controlled, no nausea, tolerating diet, remaining afebrile with bilirubin downtrending Exam Vital Signs Temp Pulse Resp BP Pulse Ox O2 Del Method 97.1 F 83 16 158/94 H 97 Room Air 01/10/25 08:00 01/10/25 08:00 01/10/25 08:00 01/10/25 08:00 01/10/25 08:00 01/10/25 08:00 Constitutional Constitutional: no acute distress Routine Respiratory Exam Respiratory: Present no resp distress Routine Abdominal Exam Abdominal: Present soft; Absent tenderness Results Results: Laboratory Laboratory results: results reviewed Assessment & Plan Plan 49F presenting with signs and symptoms of acute cholecystitis, with elevated liver enzymes but negative MRCP now s/p lap daron 01/09 which proceeded without complication, recovering well OK from my standpoint for dc Will follow up as outpt in 2 weeks PROCEDURES: Procedures Laparoscopic cholecystectomy
[2025-01-10 12:00] VITALS: BP 155/85; PULSE 96; RESP 18; TEMP 36.4; O2SAT 98
--- NOTE | 2025-01-10 12:27 | PC.NURSE ---
Patient drove herself here. Patient had surgery she cannot drive herself home. Called social sciences department chair they are setting up transportation with [employer] for 14:00. Patient will have friend come and pickling solution maker car after work
--- NOTE | 2025-01-10 13:55 | PC.SS ---
[employer] transport scheduled for 1400 via [facility] Baugh informed. Address for dropoff also confirmed [address] [address].
--- NOTE | 2025-01-10 14:37 | ESDS_ITS ---
<Statement entered by Elizabeth Perales DO - 01/11/25 09:09> I, Elizabeth Perales DO, attest that I was physically present for the clark portions of the service and evaluated the patient with the resident and I reviewed and discussed the case with the resident and agree with the resident's findings and plans of care as documented above Planned Discharge Date 01/10/25 DS: Providers Provider Date of admission: 01/09/25 12:32 Primary care physician: KIRTI Macario Admitting Provider: Elizabeth Perales DO Attending Provider on Admission: Elizabeth Perales DO Consults: 01/09/25 11:51 Consult to Gastroenterology Stat Comment: increased LFTs, RUQ pain Consulting Provider: Rosa Maria Goss Consult to General Surgery Stat Comment: increased LFTs, RUQ pain Consulting Provider: Anaid Avery Attending Provider on DC: Elizabeth Perales DO Discharging Provider: Elizabeth Perales DO DS: Diagnosis Problem List Completed Was Problem List Reviewed/Reconciled?: Yes Hospital Course Hospital Course Hospital course: This is a pleasant 49-year-old female with no significant past medical history presenting with abdominal pain, admitted for acute calculus cholecystitis. She underwent uncomplicated laparoscopic cholecystectomy with general surgery and was cleared for discharge. On POD-1, she afebrile, vital stable, labs at baseline without significant derangement, tolerating oral diet without nausea or vomiting, pain controlled, passing gas and stool. She will follow-up with general surgery within 2 weeks of discharge. In the interim, she had transaminitis with AST around 540, ALT are 600. ALP around 160. T. bili was elevated at 3.4 but improved to 1.9 after surgery. Hepatitis panel was negative. Abdominal negative for hepatocellular disease. GI was consulted. Labs were ordered, including alpha-1-AT, ceruloplasmin, [place], ANTIMITOCHONDRIAL antibody. Patient will follow-up with GI for results. IMAGE FINDINGS: * Abdominal ultrasound showed cholelithiasis, borderline thickened gallbladder wall. * MRCP showed cholelithiasis, negative for cholecystitis, no common hepatic or common bile duct stones. PATIENT INSTRUCTIONS: * Follow-up with PCP within 1-2 weeks of discharge. * Follow-up with Dr. Avery within 2 weeks of discharge. * Follow-up with GI, Dr. Goss within 1-2 weeks for your liver workup. * Repeat Liver function test in 1 week after discharge * Take IBPROFEN as needed for pain. * Return to Emergency Room if symptoms persist, worsen, or new symptoms develop. * Continue taking medications as prescribed below. ADMISSION DIAGNOSES: Acute calculus cholecystitis S/p lap daron Acute transaminitis Case was discussed with attending physician and senior resident. DO JOAN Banks This document was transcribed using voice recognition technology. Minor inaccuracies may be present. Time Spent with Patient Time attestation: Total time spent providing and/or coordinating discharge services: Time spent: Greater than 30 minutes Exam Vital Signs Temp Pulse Resp BP Pulse Ox O2 Del Method 97.5 F 96 18 155/85 H 98 Room Air 01/10/25 12:00 01/10/25 12:00 01/10/25 12:00 01/10/25 12:00 01/10/25 12:00 01/10/25 12:00 Narrative Exam GENERAL * Normal appearing adult female, NAD, pain appears controlled. HEENT * NCAT.?CINDY. Oral mucosa is moist. Patent Nares NECK * Supple, nontender, no thyromegaly, no meningismus, no JVD, no step offs CHEST * RRR, no m/g/r * CTAB, no w/r/r. Symmetrical chest rise. No intercostal subcostal retraction * Atraumatic, nontender, no crepitus, symmetrical expansion. ABDOMEN * Soft, flat. * Mild right upper quadrant tenderness, around port line, no signs of infection. * Bowel sounds presents EXTREMITIES * No edema/cyanosis.? SKIN * Warm and dry, no jaundice/rashes. NEUROMUSCULAR * No lumbar or midline, no CVA, no paraspinal muscle spasm or tenderness. * Moves all 4 extremities well, with full ROM and good CSM. * AVELAR x4, CN II-XII grossly intact. * No focal neurologic deficits. PSYCHIATRY * Normal mood and affect, cooperative, no SI or HI or hallucinations. Discharge Plan Plan Patient Disposition: HOME (Self Care) Patient condition on transfer: Stable Care Plan Goals: * Follow-up with PCP within 1-2 weeks of discharge. * Follow-up with Dr. Avery within 2 weeks of discharge. * Follow-up with GI, Dr. Goss within 1-2 weeks for your liver workup. * Repeat Liver function test in 1 week after discharge * Take IBPROFEN as needed for pain. * Return to Emergency Room if symptoms persist, worsen, or new symptoms develop. * Continue taking medications as prescribed below. Prescriptions/Referrals Prescriptions/Med Rec: New ibuprofen 400 mg tablet 400 mg PO Q8H PRN (Reason: fever or pain) 5 Days Qty: 20 0RF Continued Humira(CF) Pen 40 mg/0.4 mL pen injector kit 40 mg SUBCUT Q14D Patient Comments: INJECT 1 PEN SUBCUTANEOUS EVERY 2 WEEKS. Referrals: Orin Calderon FNP [Primary Care Provider] - Outpatient Orders (i.e. Home Health, Labs, Imaging): Liver Panel (Routine) Location: None Selected Ordered By: Elizabeth Perales Patient/Caregiver Discharge Instructions Education Materials: Liver Panel, After Gallbladder Surgery, Preventing Surgical Site Infections Print Language: Kittitian Stand Alone Forms: Amada Award Info., Patient Portal Info Letter Discharge Order Discharge Orders: Discharge (Routine); Ordered 01/10/25 Ordered By: Ad [place] Quality Discharge Quality Measures VTE prophylaxis
--- NOTE | 2025-01-10 21:54 | ESPR_ITS ---
Documentation for date of: 01/10/25 Subjective Subjective Interval history: Late entry for the note Case discussed with internal medicine team LFTs are slightly trending downwards particular the bilirubin WBC count is up to's 12.0 I still think patient can go home Will be followed as an outpatient Exam Vital Signs Temp Pulse Resp BP Pulse Ox O2 Del Method 97.5 F 96 18 155/85 H 98 Room Air 01/10/25 12:00 01/10/25 12:00 01/10/25 12:00 01/10/25 12:00 01/10/25 12:00 01/10/25 12:00 Objective Labs 01/10/25 04:45 01/10/25 04:45 Labs: Laboratory Results - last 24 hr 01/09/25 01/10/25 08:47 04:45 WBC 12.0 H D RBC 4.30 Hgb 13.4 Hct 40.1 MCV 93 MCH 31.2 MCHC 33.4 RDW Std Deviation 48.0 H Plt Count 289 Neut % (Auto) 85 H Lymph % (Auto) 12 Mitchell % (Auto) 3 Eos % (Auto) 0 Baso % (Auto) 0 Neut # (Auto) 10.2 H Lymph # (Auto) 1.4 Mitchell # (Auto) 0.3 Eos # (Auto) 0.0 Baso # (Auto) 0.0 Immature Gran # (Auto) 0.04 H Absolute Nucleated RBC 0.00 Immature Gran % 0 Nucleated RBC % 0 Sodium 137 Potassium 4.3 D Chloride 106 Carbon Dioxide 21.8 Anion Gap 9 BUN < 5 L Creatinine 0.6 Estim Creat Clear Calc 101.4 eGFR > 60 BUN/Creatinine Ratio 8 L Glucose 118 H Calculated Osmolality 272 L Calcium 9.4 Corrected Calcium 9.4 Phosphorus 2.5 Magnesium 2.0 Iron 98 TIBC 295 Iron Saturation 33 Unsat Iron Binding 197 L Total Bilirubin 1.9 H D AST 352 H ALT 618 H* Alkaline Phosphatase 167 H Total Protein 7.5 Albumin 4.5 Globulin 3.0 Albumin/Globulin Ratio 1.5 Impressions Impression: Status postcholecystectomy for symptomatic biliary tract disease Abnormal LFTs improving Workup for the chronic active hepatitis ordered and pending Assessment & Plan A&P Narrative Symptomatic cholelithiasis Cholestasis Lente secondary to cholelithiasis and cholecystitis I do not think patient has underlying chronic active hepatitis or acute viral hepatitis Recommendation Ceftriaxone 1 g IV piggyback after panculture Recommend surgical consultation for laparoscopic versus open cholecystectomy Complete workup ordered for the abnormal liver function to just in case patient has underlying chronic active hepatitis Thank you very much for the opportunity to participate in the care of this patient Time Spent With Patient Time: Total time spent is greater than 50% in coordination of care (as documented) at patient's floor/unit and/or counseling patient:
[2025-01-18 06:42] LABS: ANA Screen, IFA NEGATIVE (NEGATIVE); Alpha-1-Antitrypsin* 154 mg/dL (83-199); Ceruloplasmin* 32 mg/dL (14-48); Copper* 135 mcg/dL (70-175); Mitochondrial Ab NEGATIVE (NEGATIVE)
== END 2025-01-10 13:55 | disposition home or self-care (01) | DRG 263 ==
LOC: SERX 12:36 → SERHOLD 12:48 → S3SX 17:12
PROVIDERS: Nurse Practitioner Primary Care; Specialist; Surgery; Admitting Provider Internal Medicine; Emergency Provider Family Medicine; PCP Nurse Practitioner Family; Visit Provider Internal Medicine
PROC: 0FT44ZZ Resection of Gallbladder, Percutaneous Endoscopic Approach (ICD-10-PCS; CPT 47562; principal; 2025-01-09 15:00)
DX: K80.01 Calculus of gallbladder with acute cholecystitis with obstruction (principal); R74.8 Abnormal levels of other serum enzymes
CPT/HCPCS: 36415; 80053; 80074; 81001; 82103; 82390; 82525; 83540; 83550; 83690; 83735; 84100; 85025; 85610; 86038; 86255; 87040; 96365; 96367; 96375; 99285; A4217; A4649; J0131; J0696; J1100; J1885; J2405; J2470; J2543; J2704; J2710; J2765; J3010; J3490; J7030; S8037; 74181; J1596

== ENCOUNTER → 2025-02-09 | Outpatient (CLI) | payer MEDICAID, SELFPAY ==
[2025-02-08 08:46] LABS: Basophils # (Auto) 0.0 Thou/mm3 (0.0-0.2); Basophils % (Auto) 0 % (0-2.5); Eosinophils # (Auto) 0.1 Thou/mm3 (0.0-0.5); Eosinophils % (Auto) 1 % (0-10); Hematocrit 40.1 % (36.0-46.0); Hemoglobin 13.6 g/dL (12.0-16.0); Immature Granulocytes Auto 0.01 Thou/mm3 (0.00-0.00); Lymphocytes # (Auto) 3.6 Thou/mm3 (1.0-4.8); Lymphocytes % (Auto) 44 % (10-50); Mean Corpuscular HGB Conc 33.9 g/dl (31.0-37.0); Mean Corpuscular Hemoglobin 30.9 pg (25.0-35.0); Mean Corpuscular Volume 91 fL (80-100); Monocytes # (Auto) 0.6 Thou/mm3 (0.0-0.8); Monocytes % (Auto) 8 % (0-12); Neutrophils # (Auto) 3.9 Thou/mm3 (1.8-7.7); Neutrophils % (Auto) 47 % (37-80); Nucleated Red Blood Cell # 0.00 Thou/mm3 (0.00-0.00); Nucleated Red Blood Cell % 0 /100 WBC (0); Platelet Count 263 Thou/mm3 (140-440); RDW Standard Deviation 43.8 fL (36.4-46.3); Red Blood Count 4.40 Miln/mm3 (4.00-5.20); White Blood Count 8.3 Thou/mm3 (3.6-11.0)
[2025-02-08 08:51] LABS: HCG,Qualitative Serum Negative
[2025-02-08 09:17] LABS: INR 1.0 (0.9-1.3); Partial Thromboplastin Time 29.0 Seconds (22.0-36.0); Prothrombin Time 10.6 Seconds (9.0-12.2)
--- NOTE | 2025-02-09 09:30 | XR_ITS ---
Examinations: Ultrasound-guided percutaneous breast biopsy, left breast 2:00 nodule Left breast sonography limited INDICATIONS: BI-RADS 4 suspicious nodule 2:00 position left breast on breast sonogram September 23, 2024. Exam date and time: February 10, 2020 5:11 AM. Informed consent provided. Technique: A timeout was completed verifying correct patient, procedure, site, positioning, and special equipment if applicable Informed consent provided. The patient was placed in a supine position for the breast biopsy. Sonographic images of the breast were performed for localization of the suspicious nodule The patient's breast was prepped and draped in sterile fashion. Maximum sterile barrier technique, hand hygiene, ultrasound sterile technique 1% lidocaine was used to anesthetize the skin and breast adjacent to the suspicious nodule. Utilizing ultrasonographic guidance, 8 core biopsies were obtained of the suspicious nodule utilizing an 18-gauge BioPince needle. The specimens appears satisfactory. US guided breast biopsy marker placement. Estimated blood loss 3 cc. The patient tolerated the procedure well and there were no complications. Impression: Successful ultrasound-guided percutaneous breast biopsy, left breast 2:00 nodule. Ultrasound guided breast biopsy marker placement.
== END | disposition home or self-care (01) ==
LOC: SDIM 09:38
PROVIDERS: Radiology Diagnostic Radiology; PCP Nurse Practitioner Family; Referring Provider Nurse Practitioner Family; Visit Provider Nurse Practitioner Family
DX: D24.2 Benign neoplasm of left breast (principal); Z01.812 Encounter for preprocedural laboratory examination
CPT/HCPCS: 19083; 36415; 84703; 85025; 85610; 85730; A4648

== ENCOUNTER 2025-02-13 10:04 | Outpatient (AMB) | payer MEDICAID, SELFPAY ==
--- NOTE | 2025-02-13 10:06 | GSCOFFNT_ITS ---
Vital Signs - [facility] 02/13/25 10:16 Height 1.52 m Height Method Measured Weight 68.946 kg Weight Measurement Method Standing Scale BMI 29.8 BP 133/73 H Blood Pressure Source Automatic Cuff Blood Pressure Location Left Upper Arm Position Sitting Respiration 16 Pulse 80 Pulse Source Monitor Temp 97.7 F Temp Source Temporal Artery Scan Pulse Oximetry (%) 97 Oxygen Delivery Method Room Air Med/Allergies Allergies & Medications Allergies No Known Allergies Allergy (Verified 02/13/25 10:16) Medication Reconciliation adalimumab 40 mg/0.4 mL subcutaneous pen kit (Humira(CF) Pen) 40 mg subcut Q14D 01/09/25 [History Confirmed 02/13/25] MA Intake Visit Data Collection New Patient or Established: Established Patient (seen at [facility] [place] within 3 years) Seen by Clinical Staff ONLY (RN/MA): No Pain Present Currently: Yes Pain Location: Abdomen Pain scale:: 5 Pain Scale Used: Gomez-Ashton/Numerical [employer] Required: Yes PCP or OBGYN visit in last 3 months: Yes Hx Now: No Do You Feel Safe at Home: Yes Authorities Contacted: N/A Smoking Status Smoking Status: Never smoker Immunization / Flu Flu Vaccine in the Last 12 Months: No Flu Vaccine Exclusion Criteria: No Exclusion Criteria Past Medical History Past Medical History NEUROLOGIC: Negative Neurological Disorders or Seizures CARDIAC: Positive Cardiac Disorders, Hypertension and Hypotension; Negative Congestive Heart Failure RESPIRATORY: Negative Chronic Obstructive Pulmonary Disease (COPD) GASTROINTESTINAL: Negative Gastrointestinal Disorders GENITOURINARY: Negative Genitourinary Disorders or Renal Disease REPRODUCTIVE: Positive Previous Pregnancies MUSCULOSKELETAL: Positive Rheumatoid Arthritis ENDOCRINE: Negative Endocrine Disorders, Diabetes Mellitus Type 1 or Diabetes Mellitus Type 2 HEMATOLOGIC: Negative Blood Disorders OTHER HISTORY: Positive Chicken Pox; Negative Blood Transfusions, Blood Transfusion Reaction, Anesthesia Reactions or Cancer Family History FAMILY HISTORY: Positive Family Cardiac Disorders Surgical History SURGICAL: Positive Tubal Ligation Social History SMOKING STATUS: Smoking status: Never smoker ALCOHOL: Alcohol Intake: Never HOUSING: Housing: Apartment LIVES WITH: Lives With: Children HPI HPI Narrative 49F who presented with signs and symptoms of acute cholecystitis, with elevated liver enzymes but negative MRCP now s/p lap daron 01/09 here for planned follow up. Pt states she feels well overall with minimal pain at her upper incisions, not requiring pain medications. She has no nausea, no fever or jaundice; because of the degree of liver enzyme elevation her PCP ordered repeat labs and she is awaiting the results. She is eating well and denies any diarrhea or constipation ROS Review of Systems Systems Reviewed: All systems reviewed, normal except as documented Objective/Exam General General Appearance: alert, cooperative and well groomed Resp Respiratory exam: Absent respiratory distress Abdominal Abdominal exam: Present soft and incision (c/d/i, no erythema, no fluctuance or tenderness); Absent distention, tenderness or hernia Results Pathology of gallbladder reviewed Assessment & Plan Diagnosis / Problem List (1) Cholecystitis: Status: Acute Assessment & Plan: 49F presenting with signs and symptoms of acute cholecystitis, with elevated liver enzymes but negative MRCP now s/p lap daron 01/09, recovering well overall Plan: Avoid strenuous activity including lifting objects >10lbs for 6 weeks postop F/u as needed Office Procedures GNS Level of Care Nursing/Assessment Patient Status: Established Patient Nursing Assessment/Reassesment: Medication Reconciliation, Update PMH in EMR and Vital Signs Coordination of Care: Complex Care and Chronic Disease 1-5, Consent,records obtained, informed consent, Education Simp Pt/Fam, Results/Orders obtained and Staff clarify orders Special Needs: Language special needs Established Patient Charge Established Patient Point Assignment: 90 Established Patient Point Charge: EP Level 3 (80-115) Patient Portal Questionaires Social History Living Situation History Housing: Apartment Tobacco History Smoking Status: Never smoker Alcohol History Alcohol Intake: Never Domestic Abuse History Do You Feel Safe at Home: Yes Review of Systems Report any current symptoms Only answer those that you have currently: Past Medical History Past Medical History Have you ever been diagnosed with any of the following: Neurological Problems Seizures: No Cardiology Problems Congestive Heart Failure: No Hypertension: Yes Hypotension: Yes Respiratory Problems Chronic Obstructive Pulmonary Disease (COPD): No Genital/Urinary Problems Renal Disease: No Reproductive Problems Previous Pregnancies: Yes Musculoskeletal Problems Rheumatoid Arthritis: Yes Endocrine Problems Diabetes Mellitus Type 1: No Diabetes Mellitus Type 2: No Other Problems Blood Transfusions: No Blood Transfusion Reaction: No Anesthesia Reactions: No Chicken Pox: Yes Cancer: No
[2025-02-13 10:16] VITALS: BP 133/73; PULSE 80; RESP 16; TEMP 36.5; O2SAT 97; BMI 29.8
== END 2025-02-13 10:50 | disposition home or self-care (01) ==
LOC: HODSRG 10:04
PROVIDERS: PCP Nurse Practitioner Family; Referring Provider Nurse Practitioner Family; Supervising Provider Surgery; Visit Provider Surgery
DX: Z48.815 Encounter for surgical aftercare following surgery on the digestive system (principal); I10 Essential (primary) hypertension
CPT/HCPCS: 99213; G0463